=== PATIENT | male | born 1970 | race Caucasian/White ===

== ENCOUNTER 2017-10-30 20:47 | Emergency (ER) | payer OTHER ==
[~2017-10-30] VITALS: Ht 175.2 cm; Wt 90.7 kg
[2017-10-30] MEDS ORDERED: CYCLOBENZAPRINE10 MG PO (23:38)
[2017-10-30] MEDS ORDERED: MOBIC7.5 MG PO (23:38)
[2017-10-30] MEDS ORDERED: BACTROBAN CREAM15 GM PO (23:39)
== END 2017-10-30 23:41 | disposition home or self-care (01) ==
LOC: ED 20:47
DX: S81.812A Laceration without foreign body, left lower leg, initial encounter (principal); S16.1XXA Strain of muscle, fascia and tendon at neck level, initial encounter; S09.90XA Unspecified injury of head, initial encounter; V49.88XA Car occupant (driver) (passenger) injured in other specified transport accidents, initial encounter; Y93.89 Activity, other specified; Y92.413 State road as the place of occurrence of the external cause; Y99.9 Unspecified external cause status